=== PATIENT | male | born 1995 | race Caucasian/White ===

== ENCOUNTER 2022-01-31 00:30 | Outpatient (CLI) | payer MEDICAID | END 2022-01-31 00:31 | disposition left against medical advice (07) | LOC: EMS 00:30 | DX: Z03.89 Encounter for observation for other suspected diseases and conditions ruled out (principal) ==

== ENCOUNTER 2022-07-08 04:36 | Outpatient (CLI) | payer OTHER | END 2022-07-08 04:37 | disposition home or self-care (01) | LOC: ED 04:36 → LAB 04:36 → EDSTATUS 05:03 | PROVIDERS: ATTEND Pathology Blood Banking & Transfusion Medicine | DX: Z53.9 Procedure and treatment not carried out, unspecified reason (principal) ==

== ENCOUNTER 2022-11-24 01:19 | Outpatient (CLI) | payer OTHER | END 2022-11-24 01:20 | disposition critical access hospital (66) | LOC: EMS 01:19 | DX: M79.672 Pain in left foot (principal); M79.662 Pain in left lower leg | CPT/HCPCS: A0425; A0429 ==

== ENCOUNTER 2022-11-24 01:49 | Emergency (ER) | payer OTHER ==
[2022-11-24 02:02] VITALS: BP 134/100
[2022-11-24] MEDS ORDERED: KETOROLAC 30 MG/ML VIAL IM STA (02:21)
--- NOTE | 2022-11-24 02:49 | ED Physician Documentation ---
PD HPI LOWER EXT INJURY - Stated complaint Stated Complaint: LEFT FOOT PAIN - Chief complaint Chief Complaint: Trauma Ext - History obtained from History obtained from: Patient - Additional information Additional information: 27-year-old man presents to the emergency department after drinking alcohol this evening and complains of left foot pain starting around 9:30 PM. Patient is unsure whether he may have injured it getting into his trailer. He does endorse drinking alcohol this evening but states that he is feeling sober now Review of Systems Musculoskeletal: reports: Extremity pain PD PAST MEDICAL HISTORY - Present Medications Home Medications: Ambulatory Orders Medication Instructions Recorded Confirmed No Known Home Medications 11/24/22 11/24/22 - Allergies Allergies/Adverse Reactions: Allergies Allergy/AdvReac Type Severity Reaction Status Date / Time No Known Drug Allergies Allergy Verified 11/24/22 02:25 PD ED PE NORMAL - Vitals Vital signs reviewed: Yes - General General: Alert and oriented X 3, No acute distress, Well developed/nourished - Derm Derm: Normal color, Warm and dry - Extremities Extremities: Other (Left anterior slab off mill tender to palpation along first MCP joint. 2+ BL DP and PT pulses) Results - Vitals Vitals: Vital Signs - 24 hr 11/24/22 01:56 Temperature 36.8 C Heart Rate 75 Respiratory 16 Rate Blood Pressure 134/100 H O2 Saturation 100 Oxygen O2 Source Room air PD Medical Decision Making - ED course ED course: 27-year-old man presents to the ED with left foot pain starting tonight. Looks like he may have a nondisplaced fracture of First proximal phalanx on x-ray. IM Toradol provided for analgesia with improvement in pain. Crutches and soft boot provided. Plan to follow-up outpatient with orthopedics routinely. Return precautions given Departure - Departure Disposition: 01 Home, Self Care Clinical Impression: Toe fracture, left Condition: Good Instructions: ED Crutch Walking Comments: You were seen in the emergency department for foot pain and it looks like you have a small crack in the bone of your left first toe.You were crutches and use a soft boot until you follow-up with orthopedics in 1 to 2 weeks. Referral is provided to Dr. Aranda, the [facility] orthopedist. You also are welcome to follow-up with an orthopedist and medical DO. Return to the emergency department if you have other concerns.Take ibuprofen 600 mg every 6 hours as needed for pain.
[2022-11-24] MEDS ORDERED: oxyCODONE 5 MG TABLET PO STA (02:55)
--- NOTE | 2022-11-24 08:29 | XRAY Report ---
PROCEDURE: Foot 3 View LT INDICATIONS: foot pain TECHNIQUE: 3 views of the foot were acquired. COMPARISON: None. FINDINGS: Bones: Nondisplaced fracture of distal aspect of proximal phalanx of great toe extending into the IP joint. No dislocation. Soft tissues: No suspicious soft tissue calcifications or masses. IMPRESSION: Nondisplaced fracture of the proximal phalanx of the great toe extending to the IP joint. Findings are concordant with preliminary interpretation provided by [facility]. Reviewed by: Ronak Schmitz MD on 11/24/2022 8:27 AM PDT Approved by: Ronak Schmitz MD on 11/24/2022 8:27 AM PDT Station ID: [id number]
== END 2022-11-24 03:19 | disposition home or self-care (01) ==
LOC: EDUNIT# → ED 01:49
DX: S92.415A Nondisplaced fracture of proximal phalanx of left great toe, initial encounter for closed fracture (principal); X58.XXXA Exposure to other specified factors, initial encounter
CPT/HCPCS: 73630; 96372; 99283; 99284; A9270